=== PATIENT | female | born 2000 | race Two or more races ===

== ENCOUNTER 2024-08-17 04:29 | Emergency (ER) | payer OTHER ==
[~2024-08-17] VITALS: Ht 152.4 cm; Wt 59.0 kg
[2024-08-17] MEDS ORDERED: 0.9 % SODIUM CHLORIDE 1,000 ML IV STA (05:27)
[2024-08-17] MEDS ORDERED: ONDANSETRON HCL 2 MG/ML VIAL IV STA (05:28)
[2024-08-17] MEDS ORDERED: FAMOtidine 10 MG/ML (4ML VIAL) IV PUSH STA (05:28)
[2024-08-17] MEDS ORDERED: NALOXONE HCL 0.4 MG/ML AMPUL IV STA (05:29)
[2024-08-17] MEDS ORDERED: FLUMAZENIL 0.5 MG/5 ML ML IV STA (05:29)
[2024-08-17] MEDS ORDERED: THIAMINE HCL 100 MG/ML 2 ML VIAL IV STA (06:20)
[2024-08-17 06:45] LABS: HEMATOCRIT 35.1 % (36.0-45.00); HEMOGLOBIN 12.3 g/dL (12.0-15.00); MEAN CELL VOLUME 89.4 fL (80.00-100.00); MEAN CORPUSCULAR HEMOGLOBIN 31.4 pg (27.00-32.0); MEAN CORPUSCULAR HGB CONC 35.1 g/dl (32.0-36.0); PLATELET COUNT 243 K/uL (150-450); RED BLOOD COUNT 3.93 M/uL (4.00-6.00); RED CELL DISTRIBUTION WIDTH 14.2 % (11.5-14.5)
[2024-08-17 06:57] LABS: INR 1.05; PARTIAL THROMBOPLASTIN TIME 23.7 SECONDS (22.0-34.0); PROTHROMBIN TIME 11.4 SECONDS (9.0-11.5)
[2024-08-17 07:18] LABS: ALBUMIN 3.2 gm/dL (3.4-5.0); BILIRUBIN TOTAL 0.39 mg/dL (0.3-1.2); CALCIUM 8.1 mg/dL (8.5-10.1); CREATININE SERUM 0.6 mg/dL (0.55-1.02); GFR 123.88; GLOBULINA 3.3 G/DL (2.4-3.5); POTASSIUM 3.97 mEq/L (3.5-5.1); TOTAL PROTEIN 6.5 gm/dL (6.4-8.2)
[2024-08-17 10:38] LABS: URINE APPEARANCE Clear; URINE BILIRRUBIN Negative (NEGATIVE); URINE BLOOD Negative; URINE COLOR Yellow; URINE GLUCOSE Negative (NEGATIVE); URINE KETONE Trace (NEGATIVE); URINE LEUKOCYTE Negative; URINE NITRATE Negative; URINE PROTEIN Negative (NEGATIVE); URINE UROBILINOGEN 0.2 E.U./dl
[2024-08-17 10:39] LABS: URINE BACTERIA 20.8 uL (0.0-1933); URINE EPITHELIAL CELLS 5.5 uL (0.0-38.8); URINE RBC 2.9 uL (0.0-20.8); URINE WBC 4.2 uL (0.0-23.2)
[2024-08-17 10:49] LABS: COCAINE NEGATIVE (NEGATIVE); METHADONE NEGATIVE (NEGATIVE); OPIATES NEGATIVE (NEGATIVE); THC ( Cannabinoids) POSITIVE (NEGATIVE)
== END 2024-08-17 12:06 | disposition home or self-care (01) ==
LOC: ER 04:29
DX: F10.129 Alcohol abuse with intoxication, unspecified (principal); F19.90 Other psychoactive substance use, unspecified, uncomplicated; K29.70 Gastritis, unspecified, without bleeding